=== PATIENT | male | born 1975 | race Caucasian/White ===

== ENCOUNTER → 2017-11-27 | Outpatient (CLI) | payer OTHER ==
[~2017-11-27] MED LIST: ADVIN25/60 INH; ALBUAER2 INH; CLC100 PO; LEVO75TA25 PO
--- NOTE | 2017-11-27 09:00 | DIAGNOSTIC IMAGING REPORT ---
ABDOMEN LIMITED (US) CLINICAL HISTORY: 42 years-old Male presenting with RIGHT UPPER QUAD PAIN. TECHNIQUE: Real-time grayscale and limited color Doppler ultrasound imaging of the abdomen limited to the right upper quadrant was performed. COMPARISON: 11/06/2013. FINDINGS: Pancreas: Largely obscured due to overlying bowel gas. Liver: Moderately hyperechogenic parenchyma with partial obscuration of the right hemidiaphragm, likely indicating moderate steatosis. Sonographic evaluation for hepatic mass limited. Biliary: No intrahepatic biliary ductal dilatation. Common bile duct measures up to 3-4 mm in diameter. Gallbladder: Surgically absent. Right kidney: Normal in appearance. No hydronephrosis. Ascites: None. IMPRESSION: 1. Hepatic steatosis. Correlate with liver function tests to exclude steatohepatitis as a cause for abdominal pain. 2. Postsurgical changes of cholecystectomy. Electronically signed by: Earl Sanchez M.D. 11/27/2017 8:58 AM Dictated Date/Time: 11/27/2017 8:56 AM
== END | disposition home or self-care (01) ==
LOC: C.ULTR 08:20
PROVIDERS: ATTEND Family Medicine
DX: R10.11 Right upper quadrant pain (principal); K76.0 Fatty (change of) liver, not elsewhere classified; Z90.49 Acquired absence of other specified parts of digestive tract

== ENCOUNTER 2024-05-21 17:27 | Inpatient (IN) ==
--- NOTE | 2024-05-21 18:04 | Emergency Department Note ---
Impression & Plan Cellulitis, ZOE (acute kidney injury), Acute hypokalemia ED Provider Note NAME: DEBBY EDWARDS AGE: 48 SEX: M : 1975 ARRIVES VIA: Walk-In INFORMANT: Patient ED PROVIDER(S): Prateek Nicholas DO CHIEF COMPLAINT: Redness on his left thigh HPI: Patient is a 48-year-old male morbidly obese who presents to the ER for redness to his right thigh in combination with swelling and pain. He was seen by his PCP and placed on antibiotics. He notes he started the antibiotics on Saturday. Redness has been worsening on ABX. Denies any headache or change in vision. No chest pain or shortness of breath. Does have a little bit of a cough. No dysuria, urgency, or frequency. No other exacerbating or remitting factors. Patient does believe that he has gained weight recently Additional history obtained by [facility] who notes that he has cellulitis on his right thigh and is taking antibiotics and has gotten worse per their call. ADDITIONAL HISTORY OBTAINED: Per HPI Chronic Medical/Social Conditions Affecting Care: Per HPI PAST MEDICAL HISTORY:See Below PAST SURGICAL HISTORY:See Below FAMILY HISTORY:See Below SOCIAL HISTORY:See Below HOME MEDICATIONS:See Below ALLERGIES:See Below VITALS:See Below PHYSICAL EXAMINATION: GENERAL: Sitting up in bed, alert, morbidly obese, disheveled EYE EXAM: normal conjunctiva. OROPHARYNX: no exudate, no erythema, lips, buccal mucosa, and tongue normal and mucous membranes are moist NECK: supple, no nuchal rigidity, no adenopathy, non-tender LUNGS: Clear to auscultation. Normal chest wall mechanics HEART: no murmurs, S1 normal and S2 normal ABDOMEN: abdomen soft, non-tender, normo-active bowel sounds, no masses, no rebound or guarding. BACK: Back is symmetrical on inspection and there is no deformity, no midline tenderness, no CVA tenderness. SKIN: no rashes and no bruising UPPER EXTREMITIES: upper extremities are grossly normal. LOWER EXTREMITIES: Edema in the bilateral lower extremities with significant area of erythema on the right thigh NEURO EXAM: Normal sensorium, cranial nerves II-XII grossly intact, normal speech, no gross weakness of arms, no gross weakness of legs. MEDICAL DECISION MAKING: Patient is a 48-year-old male morbidly obese who presents to the ER for above- stated complaint. IV was established blood was obtained. Labs show no significant leukocytosis. No anemia. BMP with mild hypokalemia 3.4. Creatinine 2.3 up from baseline of 1 Per discussion with the hospitalist was able to review records. LFTs bilirubin was unremarkable. Troponin was negative. Lipase was normal. Chest x-ray with enlarged heart. Venous duplex of the right lower extremity was ordered but did not result until after admission. Will defer to the hospitalist. Consults/Care Managements Discussions: Per MDM Triage Nursing notes reviewed. Limited review of prior medical records performed Vital Signs: reviewed and remarkable for HTN Differential diagnosis: Cellulitis, abscess, MRSA infection, DVT, necrotizing fasciitis, dermatitis, drug eruption, allergic reaction, as well as other pathologies. ER treatment provided: See below Diagnostics interpreted by me include EKG and cardiac monitoring as listed below: -Cardiac Monitoring: An order was placed for continuous cardiac monitoring. The monitor shows a rate of 92 with sinus rhythm. -ECG: none -Laboratory studies:Interpreted by me as stated above in MDM and shown below. Imaging studies: Xrays: As interpreted by me: Portable AP upright 1 view of the chest shows no focal infiltrate but enlarged heart CTs show: none Procedures:none Critical Care: None Past Med/Surg History Problem List (Updated 05/21/24 @ 22:35 by Prateek Nicholas DO) Acute hypokalemia (Acute) ZOE (acute kidney injury) (Acute) Cellulitis (Acute) Encounter for pre-operative examination Medical History Asthma HAS NOT USED INHALER FOR A LONG TIME History of kidney stones Hypertension Hypothyroidism Surgical History H/O gastric bypass 2004 History of cholecystectomy History of herniorrhaphy UMBILICAL [place] teeth removed Family History Other No family history of adverse response to anesthesia Social History Smoking Status: Former smoker Tobacco Type: Cigarettes and Cigars Second Hand Exposure: No; Do You Dip or Chew Tobacco: No; Hx Alcohol Use: Yes Alcohol type: beer, wine and hard liquor Preferred Language: Uzbek It Project Manager Required: No Beliefs That Will Affect Care: None Current Living Situation: Alone Feels Safe at Home: Yes Assistive Devices: Glasses Allergies Allergies Allergy/AdvReac Type Severity Reaction Status Date / Time No Known Allergies Allergy Verified 05/21/24 19:59 Home Meds Home Medications Medication Instructions Recorded Confirmed albuterol sulfate 90 mcg/actuation 1 inh inhalation QID PRN SHORT OF 03/03/21 05/21/24 breath activated powder inhaler BREATH cholecalciferol (vitamin D3) 50 50 mcg PO QAM 03/03/21 05/21/24 mcg (2,000 unit) capsule (Vitamin D3) fluticasone 250 mcg-salmeterol 50 2 inh inhalation BID 03/03/21 05/21/24 mcg/dose blistr powdr for inhalation (Advair Diskus) albuterol sulfate 2.5 mg/3 mL 2.5 mg inhalation QID PRN 05/21/24 05/21/24 (0.083 %) solution for nebulization Shortness Of Breath Or Wheezing dicloxacillin 500 mg capsule 500 mg PO QID 05/21/24 05/21/24 ibuprofen 200 mg tablet 200 mg PO Q6H PRN Pain 05/21/24 05/21/24 levothyroxine 100 mcg tablet 100 mcg PO DAILY 05/21/24 05/21/24 losartan 100 mg tablet 100 mg PO DAILY 05/21/24 05/21/24 multivitamin 1 tab PO DAILY 05/21/24 05/21/24 Results & Data (ED) Vital Signs Vital Signs - 24 hr 05/21/24 17:40 05/21/24 18:09 05/21/24 18:11 Temperature 36.6 C 37.0 C Temperature Source Temporal Artery Scan Oral Pulse Rate 95 H 77 Pulse Rate [Right Finger] 74 Pulse Rhythm [Right Finger] Respiratory Rate 20 22 21 Respiratory Effort / Characteristics Non-Labored Spontaneous Non-Labored Respiratory Depth Normal Respiratory Pattern Regular Blood Pressure 157/97 H Blood Pressure [Right Arm] 140/83 Blood Pressure Mean 117 Blood Pressure Mean [Right Arm] 102 Blood Pressure Position [Right Arm] Lying Pulse Oximetry 96 96 96 Oxygen Delivery Method Room Air Room Air Sepsis Recent Fever Within 48 Hours No Sepsis New/Unexplained Change in Mental Status N/A Sepsis Action Taken by Nursing No Action Required 05/21/24 18:16 05/21/24 20:12 Temperature Temperature Source Pulse Rate 77 Pulse Rate [Right Finger] 72 Pulse Rhythm [Right Finger] Regular Respiratory Rate 18 Respiratory Effort / Characteristics Non-Labored Spontaneous Respiratory Depth Normal Respiratory Pattern Blood Pressure Blood Pressure [Right Arm] 143/93 H Blood Pressure Mean Blood Pressure Mean [Right Arm] 109 Blood Pressure Position [Right Arm] Sitting Pulse Oximetry 99 Oxygen Delivery Method Room Air Sepsis Recent Fever Within 48 Hours Sepsis New/Unexplained Change in Mental Status Sepsis Action Taken by Nursing Laboratory Data 05/21/24 18:27 05/21/24 18:27 Lab Results 05/21/24 Range/Units 18:27 WBC 7.51 (4.8-10.8) K/ul RBC 4.32 L (4.70-6.10) M/uL Hgb 12.7 L (14.0-18.0) g/dl Hct 38.1 L (42.0-52.0) % MCV 88.2 (80.0-100.0) fL MCH 29.4 (25.0-34.0) pg MCHC 33.3 (32.0-36.0) g/dL RDW Std Deviation 51.3 H (36.4-46.3) fL RDW Coeff of Lily 15.8 H (11.5-14.5) % Plt Count 499 H (130-400) K/uL MPV 9.3 L (9.4-12.4) fL Immature Gran % (Auto) 0.4 % Neut % (Auto) 71.0 % Lymph % (Auto) 16.5 % [place] % (Auto) 10.0 % Eos % (Auto) 1.6 % Baso % (Auto) 0.5 % Neut # (Auto) 5.33 (1.40-6.50) K/uL Lymph # (Auto) 1.24 (1.20-3.40) K/uL [place] # (Auto) 0.75 H (0.11-0.59) K/uL Eos # (Auto) 0.12 (0.00-0.50) K/uL Baso # (Auto) 0.04 (0.00-0.20) K/uL Immature Gran # (Auto) 0.03 (0.01-0.20) K/uL Sodium 139 (136-145) mmol/L Potassium 3.4 L (3.5-5.1) mmol/L Chloride 105 (98-107) mmol/L Carbon Dioxide 25 (21-32) mmol/L Anion Gap 9 (3-11) BUN 37 H (6-23) mg/dl Creatinine 2.30 H (0.6-1.4) mg/dl Est Cr Clr Drug Dosing 70.1 ml/min Est GFR ( Amer) 37.0 ml/min Est GFR (Non-Af Amer) 31.9 ml/min BUN/Creatinine Ratio 16.1 (10-20) Glucose 102 H (70-99(Fasting)) mg/dl Calcium 9.5 (8.6-10.3) mg/dl Magnesium 1.7 (1.7-2.4) mg/dl Total Bilirubin 0.8 (0.2-1.0) mg/dl AST 19 (13-39) U/L ALT 12 (7-52) U/L Alkaline Phosphatase 63 (34-104) U/L Troponin I High Sens 5.0 (0-20) pg/ml B-Natriuretic Peptide 543 H (0-100) pg/ml Total Protein 7.1 (6.0-8.3) gm/dl Albumin 3.4 (3.4-5.0) gm/dl Globulin 3.7 (2.5-4.0) gm/dl Albumin/Globulin Ratio 0.9 (0.9-2) Lipase 39 (11-82) U/L Administered Medications Sodium Chloride (Nss) 1,000 mls @ 80 mls/hr IV .[id number] [facility] Stop: 05/22/24 09:14 Last Admin: 05/21/24 21:04 Dose: 80 mls/hr Documented By: EMB Discontinued Medications Ceftriaxone Sodium (Rocephin) 2,000 mg in 50 mls @ 100 mls/hr IV NOW STA Stop: 05/21/24 18:28 Last Infusion: 05/21/24 20:08 Dose: Infused Documented By: Admin: 05/21/24 18:37 Dose: 100 mls/hr Documented By: DANTE Linezolid (Zyvox) 600 mg in 300 mls @ 300 mls/hr IV NOW STA Stop: 07/25/24 21:25 Last Admin: 05/21/24 21:13 Dose: 300 mls/hr Documented By: EMB Potassium Chloride (Potassium Chloride Crtab 20 Meq Tabcr) 20 meq PO NOW STA Stop: 05/21/24 20:42 Last Admin: 05/21/24 21:04 Dose: 20 meq Documented By: EMB Imaging Data Radiologist's Impression: Chest X-Ray 05/21/24 17:52 XR chest 1V portable HISTORY: 48 years-old Male Chest pain, nonspecific COMPARISON: 09/08/2012 TECHNIQUE: AP view of the chest FINDINGS: Cardiac silhouette is enlarged. Mild right hemidiaphragmatic elevation with bibasilar atelectasis. No pneumothorax. Bones appear intact. IMPRESSION: Cardiomegaly without acute process. ACT 112: Negative or not required by law. The above report was generated using voice recognition software. It may contain grammatical, syntax or spelling errors. Electronically signed by: Luke Ghosh M.D. 05/21/2024 6:56 PM Venous Doppler Study 05/21/24 18:00 Exam(s): US VENOUS RIGHT LOWER EXTREMITY EXAM: US Duplex Right Lower Extremity Veins CLINICAL HISTORY: Reason for exam: swelling and pain rle. TECHNIQUE: Real-time duplex ultrasound scan of the right lower extremity veins integrating B-mode two-dimensional vascular structure, Doppler spectral analysis, color flow Doppler imaging and compression. COMPARISON: No relevant prior studies available. FINDINGS: Deep veins: Unremarkable. No DVT in the visualized common femoral, femoral, proximal deep femoral or popliteal veins. The veins demonstrate normal color flow, are normally compressible, with normal phasic flow and/or augmentation response. Superficial veins: There is superficial venous thrombosis seen involving varicose vein in the right thigh. There is thrombus in the great saphenous vein. Soft tissues: No acute findings. No popliteal cyst. IMPRESSION: 1. No evidence of deep venous thrombosis 2. Superficial fibrosis involving the varicose vein in the right distal thigh and right great saphenous vein Electronically signed by: Anthony Ingram MD 05/21/24 21:37 PM Discharge Plan Visit Data Chief Complaint: Referred by Doctor Stated Complaint: DIAGNOSTIC TESTING ED Provider: Prateek Nicholas Discharge Problem: Cellulitis, ZOE (acute kidney injury), Acute hypokalemia Patient Disposition: Admitted As Inpatient Discharge Instructions Interventions: ED Discharge Assessment Last Done: 05/21/24 21:51 Discharge Problem: Cellulitis Qualifiers: Site of cellulitis: unspecified site Qualified Code(s): L03.90 - Cellulitis, unspecified
[2024-05-21] MEDS: cefTRIAXone SODIUM 2,000 MG/50 ML BAG IV STA (18:37)
[2024-05-21 18:51] LABS: Basophils # (auto) 0.04 K/uL (0.00-0.20); Basophils % (auto) 0.5 %; Eosinophils # (auto) 0.12 K/uL (0.00-0.50); Eosinophils % (auto) 1.6 %; Hematocrit (blood only) 38.1 % (42.0-52.0); Hemoglobin 12.7 g/dl (14.0-18.0); Immature Granulocytes # (auto) 0.03 K/uL (0.01-0.20); Immature Granulocytes % (auto) 0.4 %; Lymphocytes # (auto) 1.24 K/uL (1.20-3.40); Lymphocytes % (auto) 16.5 %; Mean Corpuscular Hemoglobin 29.4 pg (25.0-34.0); Mean Corpuscular Hgb Conc 33.3 g/dL (32.0-36.0); Mean Corpuscular Volume 88.2 fL (80.0-100.0); Mean Platelet Volume 9.3 fL (9.4-12.4); Monocytes # (auto) 0.75 K/uL (0.11-0.59); Neutrophils # (auto) 5.33 K/uL (1.40-6.50); Platelet Count 499 K/uL (130-400); RDW Coefficient of Variation 15.8 % (11.5-14.5); RDW Standard Deviation 51.3 fL (36.4-46.3); Red Blood Count 4.32 M/uL (4.70-6.10); White Blood Count 7.51 K/ul (4.8-10.8)
--- NOTE | 2024-05-21 18:57 | XRay Report ---
XR chest 1V portable HISTORY: 48 years-old Male Chest pain, nonspecific COMPARISON: 09/08/2012 TECHNIQUE: AP view of the chest FINDINGS: Cardiac silhouette is enlarged. Mild right hemidiaphragmatic elevation with bibasilar atelectasis. No pneumothorax. Bones appear intact. IMPRESSION: Cardiomegaly without acute process. ACT 112: Negative or not required by law. The above report was generated using voice recognition software. It may contain grammatical, syntax o r spelling errors. Electronically signed by: Luke Ghosh M.D. 05/21/2024 6:56 PM
[2024-05-21 19:08] LABS: Albumin Globulin Ratio 0.9 (0.9-2); Albumin Level 3.4 gm/dl (3.4-5.0); BUN Creatinine Ratio 16.1 (10-20); Bilirubin,Total 0.8 mg/dl (0.2-1.0); Calcium 9.5 mg/dl (8.6-10.3); Creatinine Clr Calc Pharmacy 70.1 ml/min; Est GFR (Non-African American) 31.9 ml/min; Globulin 3.7 gm/dl (2.5-4.0); Potassium 3.4 mmol/L (3.5-5.1); Total Protein 7.1 gm/dl (6.0-8.3)
--- NOTE | 2024-05-21 20:41 | History & Physical Report ---
Date of Service May 21, 2024 Assessment & Plan (1) Cellulitis of both lower extremities: (2) ZOE (acute kidney injury): (3) Hypertension: (4) Acute hypokalemia: (5) Asthma: Plan Cellulitis of bilateral lower extremities, right greater than left- Hold dicloxacillin Continue ceftriaxone 2 g IV daily begun in the ED Have asked for the addition of linezolid 600 mg IV every 12 hours, with first dose to be given in the ED. Patient is not a candidate for daptomycin due to body habitus, and not a candidate for vancomycin due to acute kidney injury Florastor 250 mg p.o. daily Acute kidney injury/hypokalemia/hypomagnesemia- Creatinine 2.30, with baseline 0.85 Potassium 3.4. Magnesium level is added, and is 1.7. Give Klor-Con 20 mEq p.o., and magnesium sulfate 1 g IV Hold HCTZ, which he has been off of for a week Hold losartan Normal saline at 80 mL/h x 1 L Repeat laboratories in a.m. Asthma- Continue albuterol sulfate 4 times daily as needed Continue Advair discus 2 inhalations twice daily Hypothyroidism- Continue levothyroxine History of Present Illness Chief Complaint: The patient presents to the emergency department with complaint of acute right lower extremity greater than left lower extremity swelling, redness and discomfort progressively worsening over the past 2 days Primary Care Provider: Jensen Ghosh The patient is a 48-year-old male with a past medical history including asthma, vitamin D deficiency, hypothyroidism, hypertension and morbid obesity. He presents to the emergency department with symptoms as noted above. He denies any recent injuries, insect or other bites, or any other direct identifiable reason for the acute change in his lower extremities. He does report that 1 week ago his hydrochlorothiazide dosing was changed to losartan. He does report that he has felt intermittent dryness of his mouth over the past 3 to 4 weeks. He denies any change in diet or recent travels. Allergies Allergy/AdvReac Type Severity Reaction Status Date / Time No Known Allergies Allergy Verified 05/21/24 19:59 Home Medications Medication Instructions Recorded Confirmed Type albuterol sulfate 90 mcg/actuation 1 inh inhalation QID PRN SHORT OF 03/03/21 05/21/24 History breath activated powder inhaler BREATH cholecalciferol (vitamin D3) 50 50 mcg PO QAM 03/03/21 05/21/24 History mcg (2,000 unit) capsule (Vitamin D3) fluticasone 250 mcg-salmeterol 50 2 inh inhalation BID 03/03/21 05/21/24 History mcg/dose blistr powdr for inhalation (Advair Diskus) albuterol sulfate 2.5 mg/3 mL 2.5 mg inhalation QID PRN 05/21/24 05/21/24 History (0.083 %) solution for nebulization Shortness Of Breath Or Wheezing dicloxacillin 500 mg capsule 500 mg PO QID 05/21/24 05/21/24 History ibuprofen 200 mg tablet 200 mg PO Q6H PRN Pain 05/21/24 05/21/24 History levothyroxine 100 mcg tablet 100 mcg PO DAILY 05/21/24 05/21/24 History losartan 100 mg tablet 100 mg PO DAILY 05/21/24 05/21/24 History multivitamin 1 tab PO DAILY 05/21/24 05/21/24 History Past Med/Surg History Problem List (Updated 05/21/24 @ 23:16 by Jaspreet Stevenson MD) Asthma HAS NOT USED INHALER FOR A LONG TIME Hypertension Cellulitis of both lower extremities Acute hypokalemia (Acute) ZOE (acute kidney injury) (Acute) Cellulitis (Acute) Encounter for pre-operative examination Medical History Asthma HAS NOT USED INHALER FOR A LONG TIME History of kidney stones Hypertension Hypothyroidism Surgical History H/O gastric bypass 2004 History of cholecystectomy History of herniorrhaphy UMBILICAL [place] teeth removed Family History Other No family history of adverse response to anesthesia Social History Smoking Status: Former smoker Tobacco Type: Cigarettes and Cigars Second Hand Exposure: No; Do You Dip or Chew Tobacco: No; Hx Alcohol Use: No Hx Substance Use: No Preferred Language: Turkmen Communication Ability: Effective Rock Picker Required: No Beliefs That Will Affect Care: Faith Faith Beliefs: islam Current Living Situation: Alone Feels Safe at Home: Yes Assistive Devices: Glasses Review of Systems Review of Systems: The patient denies chest pain, palpitations, shortness of breath, dyspnea on exertion, cough, sore throat, fevers, chills, sweats, nausea, vomiting, diarrhea , constipation, abdominal pain, pelvic pain, blood in urine or stool, dysuria, urinary frequency or urgency, lightheadedness, dizziness, headache, memory loss, loss of consciousness, abnormal bruising or bleeding, imbalance, focal or generalized weakness, numbness or tingling in arms, generalized arthralgias or myalgias, back or neck pain, or night sweats. The review of systems is otherwise negative other than for that already noted above, and at least 10 systems have been reviewed. Physical Exam Physical Exam: The patient is awake, alert and oriented 3, well developed and well nourished, normocephalic and atraumatic, lying in bed and in no acute distress. HEENT--PERRL, EOMI, mucous membranes and oropharynx normal Neck--supple. No JVD. No bruits. Thyroid normal, trachea midline, no adenopa thy. Heart--normal S1 and S2. No murmurs, rubs or gallops. Lungs--clear bilaterally, no respiratory distress, no accessory muscle use. Abdomen--normal bowel sounds and soft. Nontender. Nondistended, no hernias or masses, no organomegaly. Extremities--erythema and warmth bilateral lower extremities, right greater than left, primarily medially along thighs, not involving perineum Dermatologic--normal except as noted above Neurologic--cranial nerves II through XII grossly intact. Rheumatologic--range of motion limited by body habitus Psychiatric--normal affect. Results & Data Results & Data Vital Signs (Past 12 Hours) Vital Signs Temp Pulse Pulse Resp BP BP Pulse Ox 05/21/24 20:12 72 18 143/93 H 99 05/21/24 18:16 77 05/21/24 18:11 77 21 96 05/21/24 18:09 37.0 C 74 22 140/83 96 05/21/24 17:40 36.6 C 95 H 20 157/97 H 96 O2 Del Method 05/21/24 20:12 Room Air 05/21/24 18:16 05/21/24 18:11 05/21/24 18:09 Room Air 05/21/24 17:40 Room Air Laboratory Results Laboratory Results WBC 7.51 K/ul (4.8-10.8) 05/21/24 18: RBC 4.32 M/uL (4.70-6.10) L 05/21/24 18:27 Hgb 12.7 g/dl (14.0-18.0) L 05/21/24 18: Hct 38.1 % (42.0-52.0) L 05/21/24 18: MCV 88.2 fL (80.0-100.0) 05/21/24 18: MCH 29.4 pg (25.0-34.0) 05/21/24 18: MCHC 33.3 g/dL (32.0-36.0) 05/21/24 18: RDW Std Deviation 51.3 fL (36.4-46.3) H 05/21/24 18: RDW Coeff of Lily 15.8 % (11.5-14.5) H 05/21/24 18: Plt Count 499 K/uL (130-400) H 05/21/24 18: MPV 9.3 fL (9.4-12.4) L 05/21/24 18: Immature Gran % (Auto) 0.4 % 05/21/24 18: Neut % (Auto) 71.0 % 05/21/24 18: Lymph % (Auto) 16.5 % 05/21/24 18: [place] % (Auto) 10.0 % 05/21/24 18: Eos % (Auto) 1.6 % 05/21/24 18: Baso % (Auto) 0.5 % 05/21/24 18: Neut # (Auto) 5.33 K/uL (1.40-6.50) 05/21/24 18: Lymph # (Auto) 1.24 K/uL (1.20-3.40) 05/21/24 18: [place] # (Auto) 0.75 K/uL (0.11-0.59) H 05/21/24 18: Eos # (Auto) 0.12 K/uL (0.00-0.50) 05/21/24 18:27 Baso # (Auto) 0.04 K/uL (0.00-0.20) 05/21/24 18: Immature Gran # (Auto) 0.03 K/uL (0.01-0.20) 05/21/24 18: Sodium 139 mmol/L (136-145) 05/21/24 18: Potassium 3.4 mmol/L (3.5-5.1) L 05/21/24 18: Chloride 105 mmol/L (98-107) 05/21/24 18: Carbon Dioxide 25 mmol/L (21-32) 05/21/24 18: Anion Gap 9 (3-11) 05/21/24 18: BUN 37 mg/dl (6-23) H 05/21/24 18: Creatinine 2.30 mg/dl (0.6-1.4) H 05/21/24 18: Est Cr Clr Drug Dosing 70.1 ml/min 05/21/24 18: Est GFR ( Amer) 37.0 ml/min 05/21/24 18: Est GFR (Non-Af Amer) 31.9 ml/min 05/21/24 18: BUN/Creatinine Ratio 16.1 (10-20) 05/21/24 18: Glucose 102 mg/dl (70-99(Fasting)) H 05/21/24 18: Calcium 9.5 mg/dl (8.6-10.3) 05/21/24 18: Magnesium 1.7 mg/dl (1.7-2.4) 05/21/24 18: Total Bilirubin 0.8 mg/dl (0.2-1.0) 05/21/24 18: AST 19 U/L (13-39) 05/21/24 18: ALT 12 U/L (7-52) 05/21/24 18: Alkaline Phosphatase 63 U/L (34-104) 05/21/24 18: Troponin I High Sens 5.0 pg/ml (0-20) 05/21/24 18: B-Natriuretic Peptide 543 pg/ml (0-100) H 05/21/24 18: Total Protein 7.1 gm/dl (6.0-8.3) 05/21/24 18: Albumin 3.4 gm/dl (3.4-5.0) 05/21/24 18:27 Globulin 3.7 gm/dl (2.5-4.0) 05/21/24 18:27 Albumin/Globulin Ratio 0.9 (0.9-2) 05/21/24 18: Lipase 39 U/L (11-82) 05/21/24 18:27 Impressions Chest X-Ray 05/21/24 17:52 XR chest 1V portable HISTORY: 48 years-old Male Chest pain, nonspecific COMPARISON: 09/08/2012 TECHNIQUE: AP view of the chest FINDINGS: Cardiac silhouette is enlarged. Mild right hemidiaphragmatic elevation with bibasilar atelectasis. No pneumothorax. Bones appear intact. IMPRESSION: Cardiomegaly without acute process. ACT 112: Negative or not required by law. The above report was generated using voice recognition software. It may contain grammatical, syntax or spelling errors. Electronically signed by: Luke Ghosh M.D. 05/21/2024 6:56 PM Venous Doppler Study 05/21/24 18:00 Exam(s): US VENOUS RIGHT LOWER EXTREMITY EXAM: US Duplex Right Lower Extremity Veins CLINICAL HISTORY: Reason for exam: swelling and pain rle. TECHNIQUE: Real-time duplex ultrasound scan of the right lower extremity veins integrating B-mode two-dimensional vascular structure, Doppler spectral analysis, color flow Doppler imaging and compression. COMPARISON: No relevant prior studies available. FINDINGS: Deep veins: Unremarkable. No DVT in the visualized common femoral, femoral, proximal deep femoral or popliteal veins. The veins demonstrate normal color flow, are normally compressible, with normal phasic flow and/or augmentation response. Superficial veins: There is superficial venous thrombosis seen involving varicose vein in the right thigh. There is thrombus in the great saphenous vein. Soft tissues: No acute findings. No popliteal cyst. IMPRESSION: 1. No evidence of deep venous thrombosis 2. Superficial fibrosis involving the varicose vein in the right distal thigh and right great saphenous vein Electronically signed by: Anthony Ingram MD 05/21/24 21:37 PM Code Status & VTE Plan Code Status full code VTE Prophylaxis Plan VTE Prophylaxis will be ordered: Yes PG Care Time/CCT Total # of Minutes Spent Total Time Spent with Patient: Total time spent is greater than 50% in coordination of care (as documented) at patient's floor/unit and/or counseling patient: Coding Level of Care Code 33067 INT INP/OBS CARE 3MIN Diagnoses Cellulitis of both lower extremities L03.115; L03.116 ZOE (acute kidney injury) N17.9 Hypertension I10 Acute hypokalemia E87.6 Asthma J45.909
[2024-05-21] MEDS: SODIUM CHLORIDE 0.9% 1,000 ML IV SCH (21:04)
[2024-05-21] MEDS: POTASSIUM CHLORIDE CRTAB 20 MEQ TABCR PO STA (21:04)
[2024-05-21] MEDS: LINEZOLID 600 MG/300 ML BAG IV STA (21:13)
[2024-05-21 21:15] LABS: Magnesium 1.7 mg/dl (1.7-2.4)
--- NOTE | 2024-05-21 21:38 | Ultrasound Report ---
Exam(s): US VENOUS RIGHT LOWER EXTREMITY EXAM: US Duplex Right Lower Extremity Veins CLINICAL HISTORY: Reason for exam: swelling and pain rle. TECHNIQUE: Real-time duplex ultrasound scan of the right lower extremity veins integrating B-mode two-dimensional vascular structure, Doppler spectral analysis, color flow Doppler imaging and compression. COMPARISON: No relevant prior studies available. FINDINGS: Deep veins: Unremarkable. No DVT in the visualized common femoral, femoral, proximal deep femoral or popliteal veins. The veins demonstrate normal color flow, are normally compressible, with normal phasic flow and/or augmentation response. Superficial veins: There is superficial venous thrombosis seen involving varicose vein in the right thigh. There is thrombus in the great saphenous vein. Soft tissues: No acute findings. No popliteal cyst. IMPRESSION: 1. No evidence of deep venous thrombosis 2. Superficial fibrosis involving the varicose vein in the right distal thigh and right great saphenous vein Electronically signed by: Anthony Ingram MD 05/21/24 21:37 PM
[2024-05-21] MEDS ORDERED: ALBUTEROL HFA 8 GM INHALER INH PRN (22:50)
[2024-05-21] MEDS: HEPARIN SOD 5,000 UNIT/0.5 ML VIAL SQ SCH (23:20)
--- OUTSIDE RECORDS SUMMARY | 2024-05-21 23:42 | External Medical Summary | Continuity of Care Document ---
Author Name Unknown Organization [facility] [id number] [place] [id number] Care Team Providers Care Maintenance Foreman Name Role Phone Jensen Ghosh Primary Care Physician [phone] Encounter [facility] [id number] Date(s): 05/13/24 - 05/13/24 [facility] [address] [address] [phone] Encounter Diagnosis Body mass index [BMI] 60.0-69.9, adult(Discharge Diagnosis) - 05/13/24 Asthma exacerbation(Discharge Diagnosis) - 05/13/24 HTN (hypertension)(Discharge Diagnosis) - 05/13/24 Hypothyroid(Discharge Diagnosis) - 05/13/24 Morbid obesity(Discharge Diagnosis) - 05/13/24 Tobacco user(Discharge Diagnosis) - 05/13/24 Discharge Disposition: Home or Self Care Attending Physician: MD Ghosh Dongsheng Allergies, Adverse Reactions, Alerts No Known Allergies Assessment and Plan Extracted from: Title:Office Visit Note Author:MD Ghosh Dongsh eng Date:05/13/24 1.Asthma exacerbation STATUS: Chronic stable: Chronic uncontrolled: Acute uncomplicated: Acute illness with systemic symptoms: Undiagnosed new problems with uncertain prognosis: Chronic illnesses with exacerbation, progression, or side effects of treatment: x 1 acute complicated injury: DATA: Review of prior external note(s) from each unique source: Review of the result(s) of each unique test: x tsh Ordering of each unique test: Assessment requiring independent historian(s): GOAL: Reduce symptoms PLAN: will increase albuterol to QID, restart advair, restart neb QID to replace inhaler. d/c HCTZ. Call if not better in 2 days.Declined Z Pakfor now. CXR ordered. fluid. rest. 2.HTN (hypertension) STATUS: Chronic, at goal DATA: Reviewed labs GOAL: Maintain stability PLAN: switch HCTZ 25 to losartan 100mg. Home BP. DASH and exercise, wt loss. 3.Hypothyroid STATUS: Chronic, stable DATA: Reviewed labs GOAL: Maintain stability PLAN: continue levothyroxine. vit D/dairy/walking. 4.Morbid obesity STATUS: Chronic s/p bariatric surgery, uncontrolled DATA: Reviewed labs GOAL: 5% loss PLAN: highest wt is at least 681 lbs. Stress management. Saw Nutrition.Declined GLP1. 5.Tobacco user advised to quit call prn.f/u 1 wk Immunizations Given and Recorded Vaccine Date Status Refusal Reason influenza virus vaccine, inactivated 09/08/19 Give n influenza virus vaccine, inactivated 07/04/18 Give n influenza virus vaccine, inactivated 11/26/17 Give n influenza virus vaccine, inactivated 10/26/14 Give n influenza virus vaccine, inactivated 08/21/13 Give n pneumococcal 23-valent vaccine 08/21/13 Given tetanus/diphtheria/pertuss, acel (Tdap) 08/21/13 G iven Medications Advair Diskus 250 mcg-50 mcg Start: 05/13/24 3:40:00 PM EDT, See Instructions, Disp# 1 each, Refills: 1, INHALE 2 PUFFS BY MOUTH TWICE A DAY rinse mouth and throat after use, Pharmacy: [id number] Start Date: 05/13/24 Status: Ordered albuterol 0.083% for nebulization Start: 12/16/19 12:38:00 PM EST, 3 mL, inhaled, q6h, Disp# 75 each, PRN: cough, Pharmacy: [id number] Start Date: 12/16/19 Status: Ordered levothyroxine 100 mcg (0.1 mg) oral tablet Start: 01/07/24 10:16:00 AM EDT, 1 tab, PO, Daily, Disp# 90 tab, Refills: 1, Pharmacy: [id number] Start Date: 01/07/24 Stop Date: 07/05/24 Status: Ordered losartan 100 mg oral tablet Start: 05/13/24 3:42:00 PM EDT, 1 tab, PO, Daily, Disp# 30 tab, Refills: 3, Pharmacy: [id number] Start Date: 05/13/24 Stop Date: 09/10/24 Status: Ordered multivitamin Start: 05/04/22 3:36:00 PM EDT, 1 tab, PO, Daily Start Date: 05/04/22 Status: Ordered Peak flow meter Start: 01/24/15 1:28:00 PM EDT, Peak flow meter, eRx Product Type: Supply, See Instructions, Disp# 1unit, home Dx: asthma Start Date: 01/24/15 Status: Ordered ProAir HFA 90 mcg/inh inhalation aerosol Start: 09/28/20 2:14:00 PM EST, 2 puff, inhaled, qid, Disp# 1 each, Refills: 4, PRN: cough, Pharmacy: [id number] Start Date: 09/28/20 Status: Ordered Shingrix intramuscular injection Start: 05/15/23 3:49:00 PM EDT, 0.5 mL, IM, ONCE, Disp# 1 each, Refills: 1, repeat dose in 2 to 6 months, Note to Pharmacy: do shot after birthday, Pharmacy: [id number] Start Date: 05/15/23 Status: Ordered Tetanus toxoids-Diphtheria, Adult (Td) 2 units-2 units/0.5 mL intramuscular suspension Start: 05/15/23 3:49:00 PM EDT, 0.5 mL, IM, ONCE, Disp# 0.5 mL, do shot after Oct, Note to Pharmacy:okay to do TDaP if TD is not available, Pharmacy: [id number] Start Date: 05/15/23 Status: Ordered Viagra 50 mg oral tablet Start: 09/28/20 2:16:00 PM EST, 1 tab, PO, Daily, Disp# 30 tab, 1 hour before sexual activity, PRN: as needed for erectile dysfunction, Pharmacy: [id number] Start Date: 09/28/20 Status: Ordered Vitamin D3 1000 intl units oral capsule Start: 10/05/13 4:00:00 PM EST, 1 cap, PO, Daily, Disp# 30 cap, other Start Date: 10/05/13 Status: Ordered Mental Status 05/13/24 Barriers to Learning one year None evide nt Mandatory Health Literacy Documentation Yes Health Literacy Communication Barriers N ever Primary Language Irish Problem List Condition Confirmation Course Effective Dates Status Health St atus Informant Asthma Confirmed Active Breathing-related sleep disorder Confirmed Active Left foot pain Confirmed Active S/P bariatric surgery Confirmed Active HTN (hypertension) Confirmed Active Hypothyroid Confirmed Active IFG (impaired fasting glucose) Confirmed Active Knee pain Confirmed Active Melanocytic nevus of skin Confirmed Active Morbid obesity Confirmed Active Tobacco user Confirmed Active Varicose veins of legs Confirmed Active Venous varices Confirmed Active Vitamin D deficiency Confirmed Active Weight disorder Confirmed Active Diagnosis Diagnosis Type Effective Dates Health Status Clinical Service Informant Asthma exacerbation Discharge Diagnosis 05/13/24 Non-Specified HTN (hypertension) Discharge Diagnosis 05/13/24 Non-Specified Body mass index [BMI] 60.0-69.9, adult Discharge Diagnosis 05/13/24 Non-Specified Hypothyroid Discharge Diagnosis 05/13/24 Non-Specified Morbid obesity Discharge Diagnosis 05/13/24 Non-Specified Tobacco user Discharge Diagnosis 05/13/24 Non-Specified Procedures Procedure Date Related Diagnosis Body Site Status Colonoscopy 1 03/07/21 Completed Diagnostic colonoscopy 2 03/07/21 Completed DEXA (dual energy X-ray absorptiometry) of lateral spine 3 12/22/20 Completed Ultrasound ABD Limited 4 11/27/17 Completed Cholecystectomy; 09/08/04 Complete d Gastric bypass 08/2004 Completed Full sleep study 02/21/99 Complete d Extraction of wisdom tooth Completed Manual repair of hernia C ompleted 1Impression: The entire examined colon is normal. No specimens collected. Recommendations: Repeat colonoscopy in 10 years for screening purposes. 2The entire examined colon is normal No specimens collected 3Impression: The BMD measured at Forearm Radius 33% is 0.918 g/cm2 with T-score of 1.4 is normal. Fracture risk is low. With Z-score of 1.4, this patient's BMD is slightly higher than the normal limits for their age andsex. 4Impression 1> Hepatic steatosis. Correlate with liver function test to exclude steatohpatitis as a cause for abdominl pain. 2> Postsurgical changes of cholecystectomy Vital Signs Most recent to oldest [Reference Range]: 1 Height 178.1 cm (05/13/24 3:28 PM) Patient Weight 203.9 kg (05/13/24 3:28 PM) Body Mass Index 64.28 kg/m2 (05/13/24 3:28 PM) Heart Rate 109 bpm (05/13/24 3:28 PM) Respiratory Rate 20 br/min (05/13/24 3:28 PM) Blood Pressure 124/78mmHg (05/13/24 3:28 PM) Cuff Pulse Pressure 46 mmHg (05/13/24 3:28 PM) Social History Social History Type Response Smoking Status Former Smoker, quit within 31 days - 1 yr Sex Male FCM Outpt Note * MD Augie, Jensen: PERFORM Event Display: FCM Outpt Note Authored Date: [id number] Chief Complaint Feeling bloated and dehydrated. Started 1 wk ago. Has abd hernia. History of Present Illness Cough: x1 wk. hacking cough "spasma". hard to sleep.worse atnight.little sputum.SOB. dry mouth.Bloated. umbilicalhernia:recurrent.urine is concentrated Very tired.sweats. HTN: on med. home BP has been good. no dizzy Thyroid: on med. WT: not doing much on diet and exercise. smoking: occasional no travel. Review of Systems No fever/chills. No headache. No other respiratory symptoms. No chest pain. No nausea/vomiting. No abdominal pain. No change with bowels. No urinary symptoms. Other systems reviewed and are neg. Physical Exam Vitals & Measurements HR:109(Monitored) RR:20 BP:124/78 SpO2:96% HT:178.1cm WT:203.900kg(Dosing) WT:203.9kg BMI:64.28 PHQ2 Data(Data Documented on:05/13/2024 15:24) Emotional health assessment NEGATIVE General: No acute distress. Nontoxic. Head:Normocephalic, Atraumatic. Eyes:Pupils are equal, round Normal conjunctiva. Respiratory:Lungs are clear to auscultation, Respirations non-labored, Breath sounds equal WERNER. Cardiovascular:Normal rate, Regular rhythm, No murmur, Rubs, gallops. Gastrointestinal:Soft, Non-tender, Non-distended, Normal bowel sounds. Musculoskeletal:no pitting edema Neurologic:Alert, Oriented, No focal deficits. Psychiatric:Cooperative, Appropriate mood & affect. Assessment/Plan 1.Asthma exacerbation STATUS: Chronic stable: Chronic uncontrolled: Acute uncomplicated: Acute illness with systemic symptoms: Undiagnosed new problems with uncertain prognosis: Chronic illnesses with exacerbation, progression, or side effects of treatment: x 1 acute complicated injury: DATA: Review of prior external note(s) from each unique source: Review of the result(s) of each unique test: x tsh Ordering of each unique test: Assessment requiring independent historian(s): GOAL: Reduce symptoms PLAN: will increase albuterol to QID, restart advair, restart neb QID to replace inhaler. d/c HCTZ. Call if not better in 2 days.Declined Z Pakfor now. CXR ordered. fluid. rest. 2.HTN (hypertension) STATUS: Chronic, at goal DATA: Reviewed labs GOAL: Maintain stability PLAN: switchHCTZ 25 to losartan 100mg. Home BP. DASH and exercise, wt loss. 3.Hypothyroid STATUS: Chronic, stable DATA: Reviewed labs GOAL: Maintain stability PLAN: continue levothyroxine. vit D/dairy/walking. 4.Morbid obesity STATUS: Chronic s/p bariatric surgery, uncontrolled DATA: Reviewed labs GOAL: 5% loss PLAN: highest wt is at least 681 lbs. Stress management. Saw Nutrition.Declined GLP1. 5.Tobacco user advised to quit call prn.f/u 1 wk Problem List/Past Medical History Ongoing Asthma Breathing-related sleep disorder H/O: hypothyroidism HTN (hypertension) Hypothyroid IFG (impaired fasting glucose) Incisional hernia Knee pain Left foot pain Melanocytic nevus of skin Morbid obesity Nephrolithiasis S/P bariatric surgery Tobacco user Varicose veins of legs Venous varices Vitamin D deficiency Weight disorder Procedure/Surgical History Colonoscopy| Service Date: 03/07/2021iagnostic colonoscopy| Service Date: 1DEXA (dual energy X-ray absorptiometry) of lateral spine| Service Date: 12/22/2020Ultrasound ABD Limited| Service Date: 11/27/2017Cholecystectomy;| Service Date: 09/08/2004Gastric bypass| Service Date: 08/2004Full sleep study| Service Date: 02/21/1999Manual repair of herniaExtraction ofwisdom tooth Medications albuterol(albuterol 0.083% for nebulization), 2.5 mg= 3 mL, inhaled, q6h, PRN albuterol(ProAir HFA 90 mcg/inh inhalation aerosol), 2 puff, inhaled, qid, PRN, 4 refills cholecalciferol(Vitamin D3 1000 intl units oral capsule), 1000 Int_Unit= 1 cap, PO, Daily fluticasone-salmeterol(Advair Diskus 250 mcg-50 mcg), See Instructions, 1 refills levothyroxine(levothyroxine 100 mcg (0.1 mg) oral tablet), 100 mcg= 1 tab, PO, Daily, 1 refills losartan(losartan 100 mg oral tablet), 100 mg= 1 tab, PO, Daily, 3 refills multivitamin, 1 tab, PO, Daily sildenafil(Viagra 50 mg oral tablet), 50 mg= 1 tab, PO, Daily, PRN tetanus toxoids-diphtheria, Td (Adult)(Tetanus toxoids-Diphtheria, Adult (Td) 2 units-2 units/0.5 mL intramuscular suspension), 0.5 mL, IM, ONCE unlisted medication(Peak flow meter), See Instructions zoster vaccine, inactivated(Shingrix intramuscular injection), 0.5 mL, IM, ONCE, 1 refills Allergies NKA Social History Smoking Status Former Smoker, quit within 31 days - 1 yr Alcohol - Low Risk Use:Current Type:Beer, Wine, Liquor Frequency:1-2 times per week Employment/School Status:Employed Description:[employer] Exercise - Occasional exercise Home/Environment Lives with:Alone Home equipment:Respiratory treatments Substance Abuse - Denies Substance Abuse Tobacco - No Risk Family History ANGINA, NOS: MGM. Cancer: MGM. Heart attack: MGF. Stroke: PGF. Health Status Family Member(s) Mother: History is unknown Father: History is negative Immunizations Vaccine Date Status influenza virus vaccine, inactivated 09/08/2019 Given influenza virus vaccine, inactivated 07/04/2018 Given influenza virus vaccine, inactivated 11/26/2017 Given influenza virus vaccine, inactivated 10/26/2014 Given pneumococcal 23-valent vaccine 08/21/2013 Given tetanus/diphtheria/pertuss, acel (Tdap) 08/21/2013 Given influenza virus vaccine, inactivated 08/21/2013 Given Recommendations Health Maintenance Pending(in the next year) Due Adult Influenza Vaccine due04/26/24and every 1year Adult COVID-19 Vaccination due05/13/24Unknown Frequency Adult Social Determinants of Health Screening due05/13/24Unknown Frequency Adult Tdap/Td Vaccine due05/13/24Unknown Frequency Pneumococcal Vaccine Adults and Adolescents with Chronic Illness due07/17/24One-time only Shingles Vaccine due05/13/24One-time only Satisfied(in the past 1 year) Satisfied Body Mass Index on05/13/24.Satisfied by MICAELA Cordero Alexandra Electronic Signature on File Electronically Reviewed/Signed by: Jensen Ghosh MD Author Signature Dt/Tm:05/13/2024 03:49 PM Department of Family Medicine DJ Patient Care team information Care Team Personnel Name: MD Ghosh Dongsheng Position: Physician - Family Med Member Role: Primary Care Provider Address: Address: [address] [place] [address] Name: CLARENCE Tesfaye Lynn Position: Physician Manager It Security Exempt - Vasc Surg Member Role: Lifetime Relationship Address: Address: [address] [place] [address] Care Team Related Persons Name: ALESSANDRO EDWARDS Address: home No Address Provided Name: ELIGIO EDWARDS Address: home No Address Provided
[2024-05-21] MEDS: MAGNESIUM SULFATE / D5W 1 GM/100 ML BAG IV ONE (23:55)
[2024-05-22] MEDS: LEVOTHYROXINE SODIUM 100 MCG TABLET PO SCH (06:14)
[2024-05-22 07:24] LABS: Basophils # (auto) 0.05 K/uL (0.00-0.20); Basophils % (auto) 0.7 %; Eosinophils # (auto) 0.24 K/uL (0.00-0.50); Eosinophils % (auto) 3.4 %; Hematocrit (blood only) 33.9 % (42.0-52.0); Hemoglobin 11.2 g/dl (14.0-18.0); Immature Granulocytes # (auto) 0.03 K/uL (0.01-0.20); Immature Granulocytes % (auto) 0.4 %; Lymphocytes # (auto) 1.13 K/uL (1.20-3.40); Lymphocytes % (auto) 15.8 %; Mean Corpuscular Hemoglobin 29.6 pg (25.0-34.0); Mean Corpuscular Volume 89.7 fL (80.0-100.0); Mean Platelet Volume 9.4 fL (9.4-12.4); Monocytes # (auto) 0.92 K/uL (0.11-0.59); Monocytes % (auto) 12.9 %; Neutrophils # (auto) 4.77 K/uL (1.40-6.50); Neutrophils % (auto) 66.8 %; Platelet Count 453 K/uL (130-400); RDW Coefficient of Variation 15.8 % (11.5-14.5); RDW Standard Deviation 51.8 fL (36.4-46.3); Red Blood Count 3.78 M/uL (4.70-6.10); White Blood Count 7.14 K/ul (4.8-10.8)
--- NOTE | 2024-05-22 07:29 | Hospitalist Progress Note ---
Date of Service May 22, 2024 Assessment & Plan (1) Cellulitis of both lower extremities: (2) ZOE (acute kidney injury): (3) Hypertension: (4) Acute hypokalemia: (5) Asthma: Plan Cellulitis of bilateral lower extremities, right greater than left- Patient failed outpatient cellulitis management with dicloxacillin Continue ceftriaxone 2 g IV daily. Continue linezolid 600 mg IV every 12 hours for MRSA coverage. Patient is not a candidate for daptomycin due to body habitus, and not a candidate for vancomycin due to acute kidney injury Florastor 250 mg p.o. daily Cellulitis borders marked with skin marker to assess for further changes Acute kidney injury/hypokalemia/hypomagnesemia- Creatinine 2.3 --> 1.88, with baseline 0.85 S/p 1L IV fluids, will hold off on additional fluids given adequate PO intake, also observed to have had 8kg weight gain in past week Suspect abrupt change in weight due to fluid retention, likely in part due to discontinuation of HCTZ last week Potassium 3.7 Magnesium 1.7 - wnl today Hold losartan Repeat laboratories AM Asthma- Continue albuterol sulfate 4 times daily as needed Continue Advair discus 2 inhalations twice daily Hypothyroidism- Continue levothyroxine Diet: heart healthy Full Code DVT prophylaxis: heparin Admission and Anticipated Discharge Date Admission Date: May 21, 2024 Supervising Physician Co-Signing Physician Notes Attending Physician Supervision Note: I independently interviewed and examined the patient and verified the rojas history and physical, reviewed labs and image studies and agree with findings and care plan noted above. No new concerns. comfortable in bed Skin - extensive erythema and induration extending across the right medial thigh and partly in right thigh as well. Cellulitis - continue ceftriaxone and linezolid. ZOE - improved with IV hydration. follow renal function. holding hctz. -possible concern of fluid overload d/t weight gain. will follow closely. Subjective Shahram is feeling improved slightly this morning as his right leg is somewhat less uncomfortable. Still feels like his range of motion is limited by the infection and swelling is bothersome. He is afebrile with no chills. Feels that his dehydration has improved significantly, now with light colored urine. No nausea, vomiting, or diarrhea. No chest pain or shortness of breath. Review of Systems Review of Systems: See HPI Physical Exam Physical Exam: The patient is awake, alert and oriented 3, well developed and well nourished, normocephalic and atraumatic, lying in bed and in no acute distress. HEENT--PERRL, EOMI, mucous membranes and oropharynx normal Neck--supple. No JVD. No bruits. Thyroid normal, trachea midline, no adenopathy. Heart--normal S1 and S2. No murmurs, rubs or gallops. Lungs--clear bilaterally, no respiratory distress, no accessory muscle use. Abdomen--normal bowel sounds and soft. Nontender. Nondistended, no hernias or masses, no organomegaly. Extremities--erythema and warmth bilateral lower extremities, right greater than left, primarily medially along thighs, not involving perineum. Subcutaneous nodules present Dermatologic--normal except as noted above Neurologic--cranial nerves II through XII grossly intact. Psychiatric--normal affect. Results & Data Results & Data Vital Signs (Past 12 Hours) Vital Signs Temp Pulse Resp BP Pulse Ox O2 Del Method 05/22/24 06:49 36.6 C 73 16 132/82 94 Room Air 05/21/24 22:39 Room Air 05/21/24 22:27 36.7 C 69 18 126/81 98 Room Air 05/21/24 20:12 72 18 143/93 H 99 Room Air Laboratory Results Cardiac Enzymes 05/21/24 Range/Units 18:27 AST 19 (13-39) U/L Troponin I High Sens 5.0 (0-20) pg/ml B-Natriuretic Peptide 543 H (0-100) pg/ml Coagulation 05/21/24 Range/Units 18:27 B-Natriuretic Peptide 543 H (0-100) pg/ml CBC 05/21/24 05/22/24 Range/Units 18:27 06:22 WBC 7.51 7.14 (4.8-10.8) K/ul RBC 4.32 L 3.78 L (4.70-6.10) M/uL Hgb 12.7 L 11.2 L (14.0-18.0) g/dl Hct 38.1 L 33.9 L (42.0-52.0) % Plt Count 499 H 453 H (130-400) K/uL Neut # (Auto) 5.33 4.77 (1.40-6.50) K/uL Lymph # (Auto) 1.24 1.13 L (1.20-3.40) K/uL Tompkins # (Auto) 0.75 H 0.92 H (0.11-0.59) K/uL Eos # (Auto) 0.12 0.24 (0.00-0.50) K/uL Baso # (Auto) 0.04 0.05 (0.00-0.20) K/uL Comprehensive Metabolic Panel 05/21/24 Range/Units 18:27 Sodium 139 (136-145) mmol/L Potassium 3.4 L (3.5-5.1) mmol/L Chloride 105 (98-107) mmol/L Carbon Dioxide 25 (21-32) mmol/L BUN 37 H (6-23) mg/dl Creatinine 2.30 H (0.6-1.4) mg/dl Glucose 102 H (70-99(Fasting)) mg/dl Calcium 9.5 (8.6-10.3) mg/dl AST 19 (13-39) U/L ALT 12 (7-52) U/L Alkaline Phosphatase 63 (34-104) U/L Total Protein 7.1 (6.0-8.3) gm/dl Albumin 3.4 (3.4-5.0) gm/dl Intake and Output 05/21/24 05/22/24 05/22/24 22:59 06:59 14:59 Intake Total 50 / 450 400 / 450 Balance 50 / 450 400 / 450 Intake: IV 50 / 450 400 / 450 Linezolid 600 mg In 300 ml @ 300 / 300 300 mls/hr IV NOW STA Rx#: [id number] Magnesium Sulfate / D5w 1 gm In 100 / 100 100 ml @ 50 mls/hr IV ONE ONE Rx#:[id number] cefTRIAXone SODIUM 2,000 mg In 50 / 50 50 ml @ 100 mls/hr IV NOW STA Rx#:[id number] Other: # Unmeasured Voids 1 Weight 208.743 kg Weight Measurement Method Standing Scale Resident Activity Tracking Resident Involvement: Resident Care Provided Care Provided: Adult [facility]
[2024-05-22 07:49] LABS: Albumin Level 2.9 gm/dl (3.4-5.0); BUN Creatinine Ratio 16.5 (10-20); Calcium 8.7 mg/dl (8.6-10.3); Creatinine Clr Calc Pharmacy 84.6 ml/min; Est GFR (African American) 47.2 ml/min; Est GFR (Non-African American) 40.7 ml/min; Magnesium 1.7 mg/dl (1.7-2.4); Potassium 3.7 mmol/L (3.5-5.1)
[2024-05-22] MEDS: cefTRIAXone SODIUM 2,000 MG/50 ML BAG IV SCH (08:20)
[2024-05-22] MEDS: CHOLECALCIFEROL 25 MCG (1000 UNITS) TAB PO SCH (08:21)
[2024-05-22] MEDS: SACCHAROMYCES BOULARDII 250 MG CAP PO SCH (08:21)
[2024-05-22] MEDS: MULTIVITAMIN TAB PO SCH (08:21)
[2024-05-22] MEDS: FLUTICASONE/VILANTEROL 100/25MCG 14 PUFFS/INHALER INH SCH (08:22)
[2024-05-22] MEDS: LINEZOLID 600 MG/300 ML BAG IV SCH (09:11)
--- NOTE | 2024-05-22 20:30 | Electrocardiogram Report ---
Test Reason : Blood Pressure : / mmHG Vent. Rate : 083 BPM Atrial Rate : 083 BPM P-R Int : 130 ms QRS Dur : 090 ms QT Int : 398 ms P-R-T Axes : 008 -13 009 degrees QTc Int : 467 ms Normal sinus rhythm Cannot rule out Anterior infarct , age undetermined Abnormal ECG No previous ECGs available Confirmed by Elliott Doss ([id number]) on 05/22/2024 8:30:23 PM Referred By: Buck Giron Confirmed By:Elliott Doss
[2024-05-23 07:00] LABS: Basophils # (auto) 0.04 K/uL (0.00-0.20); Basophils % (auto) 0.6 %; Eosinophils % (auto) 2.9 %; Hematocrit (blood only) 35.1 % (42.0-52.0); Hemoglobin 11.8 g/dl (14.0-18.0); Immature Granulocytes # (auto) 0.03 K/uL (0.01-0.20); Immature Granulocytes % (auto) 0.4 %; Lymphocytes # (auto) 1.25 K/uL (1.20-3.40); Lymphocytes % (auto) 18.4 %; Mean Corpuscular Hemoglobin 29.6 pg (25.0-34.0); Mean Corpuscular Hgb Conc 33.6 g/dL (32.0-36.0); Mean Corpuscular Volume 88.2 fL (80.0-100.0); Mean Platelet Volume 9.6 fL (9.4-12.4); Monocytes # (auto) 0.85 K/uL (0.11-0.59); Monocytes % (auto) 12.5 %; Neutrophils # (auto) 4.42 K/uL (1.40-6.50); Neutrophils % (auto) 65.2 %; Platelet Count 469 K/uL (130-400); RDW Coefficient of Variation 15.9 % (11.5-14.5); RDW Standard Deviation 51.5 fL (36.4-46.3); Red Blood Count 3.98 M/uL (4.70-6.10); White Blood Count 6.79 K/ul (4.8-10.8)
[2024-05-23 07:40] LABS: BUN Creatinine Ratio 13.8 (10-20); Calcium 8.8 mg/dl (8.6-10.3); Creatinine Clr Calc Pharmacy 99.5 ml/min; Est GFR (African American) 57.4 ml/min; Est GFR (Non-African American) 49.5 ml/min; Magnesium 1.5 mg/dl (1.7-2.4); Phosphorus 3.6 mg/dl (2.5-4.9); Potassium 3.7 mmol/L (3.5-5.1)
--- NOTE | 2024-05-23 10:25 | Hospitalist Progress Note ---
Date of Service May 23, 2024 Assessment & Plan (1) Cellulitis of both lower extremities: (2) ZOE (acute kidney injury): (3) Hypertension: (4) Acute hypokalemia: (5) Asthma: Plan Cellulitis of bilateral lower extremities, right greater than left- Patient failed outpatient cellulitis management with dicloxacillin Continue ceftriaxone 2 g IV daily + linezolid 600 mg IV every 12 hours Patient is not a candidate for daptomycin due to body habitus, and not a cand idate for vancomycin due to acute kidney injury Florastor 250 mg p.o. daily Cellulitis borders marked with skin marker 05/22, continue to monitor for further changes Acute kidney injury/hypokalemia/hypomagnesemia- Creatinine 1.88 --> 1.6, with baseline 0.85 Will continue to hold off on additional fluids given adequate PO intake, also observed to have had 8kg weight gain in past week Suspect abrupt change in weight due to fluid retention, likely in part due to discontinuation of HCTZ last week Potassium 3.7 Magnesium 1.5 - electrolytes repleted Hold losartan Repeat laboratories AM H/o Chronic venous insufficiency: Increased leg swelling and abrupt weight gain in the week leading up to admission, likely fluid retention exacerbated by discontinuation of HCTZ Will try knee-high bilateral compression stockings and reassess Asthma- Continue albuterol sulfate 4 times daily as needed Continue Advair discus 2 inhalations twice daily Hypothyroidism- Continue levothyroxine Diet: heart healthy Full Code DVT prophylaxis: heparin Admission and Anticipated Discharge Date Admission Date: May 21, 2024 Supervising Physician Co-Signing Physician Notes Attending Physician Supervision Note: I independently interviewed and examined the patient and verified the rojas history and physical, reviewed labs and image studies and agree with findings and care plan noted above. No new concerns. comfortable in bed Skin - erythema much improved from the pen marked margin Cellulitis - continue ceftriaxone and linezolid. ZOE - improved with IV hydration. follow renal function. holding hctz. -possible concern of fluid overload d/t weight gain since outpatient visit weight measurement. will follow closely. Anticipate d/c home in am Arnaldo Shahram reports that skin lesion progression seems at least to have stagnated, unsure whether there is improvement yet. Pain is about the same. More than the pain, he notes feeling of tightness due to swelling (thighs>calves) as being the most bothersome. Denies weeping or discharge. Prior to last week, pt consistently used compression stockings for venous insufficiency - now unable to put them on and does not have assistance. He is afebrile with no chills. No nausea, vomiting, or diarrhea. No chest pain or shortness of breath. Review of Systems Review of Systems: as per HPI Physical Exam Physical Exam: General: Alert and oriented. No acute distress Cardiac: Regular rate and rhythm, no murmurs appreciated Respiratory: Lungs clear to auscultation bilaterally, No increased work of breathing. No crackles, wheezes, rhonchi appreciated. Abdominal: Soft, non-tender, non-distended. Bowel sounds present. Extremities: + bilateral lower extremity edema, calves non-tender bilaterally Skin: Bilateral medial thighs R>>L with confluent areas of erythema, warm to touch, indurated, and tender to palpation in certain areas. Left thigh appears improved compared to yesterday, right thigh with mild improvement, no progression beyond marked boundaries. Results & Data Results & Data Vital Signs (Past 12 Hours) Vital Signs Temp Pulse Resp BP Pulse Ox O2 Del Method 05/23/24 06:56 37.0 C 68 16 129/85 98 Room Air Resident Activity Tracking Resident Involvement: Resident Care Provided Care Provided: Adult Hospital Medicine
[2024-05-23] MEDS: MAGNESIUM SULFATE / D5W 1 GM/100 ML BAG IV SCH (12:19)
[2024-05-24] MEDS: ACETAMINOPHEN 325 MG TAB PO PRN (01:36)
[2024-05-24 06:45] LABS: Basophils # (auto) 0.03 K/uL (0.00-0.20); Basophils % (auto) 0.4 %; Eosinophils # (auto) 0.23 K/uL (0.00-0.50); Eosinophils % (auto) 3.1 %; Hematocrit (blood only) 33.7 % (42.0-52.0); Immature Granulocytes # (auto) 0.02 K/uL (0.01-0.20); Immature Granulocytes % (auto) 0.3 %; Lymphocytes # (auto) 1.49 K/uL (1.20-3.40); Lymphocytes % (auto) 19.9 %; Mean Corpuscular Hemoglobin 28.9 pg (25.0-34.0); Mean Corpuscular Hgb Conc 32.6 g/dL (32.0-36.0); Mean Corpuscular Volume 88.7 fL (80.0-100.0); Mean Platelet Volume 9.4 fL (9.4-12.4); Monocytes # (auto) 0.83 K/uL (0.11-0.59); Monocytes % (auto) 11.1 %; Neutrophils # (auto) 4.87 K/uL (1.40-6.50); Neutrophils % (auto) 65.2 %; Platelet Count 430 K/uL (130-400); RDW Coefficient of Variation 15.9 % (11.5-14.5); RDW Standard Deviation 51.6 fL (36.4-46.3); White Blood Count 7.47 K/ul (4.8-10.8)
[2024-05-24 07:03] LABS: Albumin Level 2.9 gm/dl (3.4-5.0); BUN Creatinine Ratio 11.9 (10-20); Calcium 8.3 mg/dl (8.6-10.3); Creatinine Clr Calc Pharmacy 118.7 ml/min; Est GFR (African American) 71.1 ml/min; Est GFR (Non-African American) 61.3 ml/min; Magnesium 1.5 mg/dl (1.7-2.4); Phosphorus 3.7 mg/dl (2.5-4.9); Potassium 3.6 mmol/L (3.5-5.1)
[2024-05-24] MEDS: MAGNESIUM SULFATE / D5W 1 GM/100 ML BAG IV SCH (09:38)
--- NOTE | 2024-05-24 10:26 | Hospitalist Progress Note ---
Date of Service May 24, 2024 Assessment & Plan (1) Cellulitis of both lower extremities: (2) ZOE (acute kidney injury): (3) Hypertension: (4) Acute hypokalemia: (5) Asthma: Plan Cellulitis of bilateral lower extremities, right greater than left- Patient failed outpatient cellulitis management with dicloxacillin Given minimal improvement, will continue ceftriaxone 2 g IV daily + linezolid 600 mg IV every 12 hours (day 3 of IV abx) Tentative plan to transition to PO Doxycycline when ready for discharge, will reevaluate tomorrow. Patient is not a candidate for daptomycin due to body habitus, and not a candidate for vancomycin due to acute kidney injury Florastor 250 mg p.o. daily Cellulitis borders marked with skin marker 05/22, continue to monitor for further changes Acute kidney injury/hypokalemia/hypomagnesemia- Creatinine 1.6-->1.34 with baseline 0.85 Will continue to hold off on additional fluids given adequate PO intake, also observed to have had 8kg weight gain in past week Suspect abrupt change in weight due to fluid retention, likely in part due to discontinuation of HCTZ last week Potassium 3.6 Magnesium 1.5 - electrolytes repleted Hold losartan Repeat laboratories AM H/o Chronic venous insufficiency: Increased leg swelling and abrupt weight gain in the week leading up to admission, likely fluid retention exacerbated by discontinuation of HCTZ Knee-high bilateral FLORENCE stockings not helpful, removed. Would recommend resumption of home compression stockings uppon discharge. Asthma- Continue albuterol sulfate 4 times daily as needed Continue Advair discus 2 inhalations twice daily Hypothyroidism- Continue levothyroxine Diet: heart healthy Full Code DVT prophylaxis: heparin Admission and Anticipated Discharge Date Admission Date: May 21, 2024 Supervising Physician Co-Signing Physician Notes Attending Physician Supervision Note: I independently interviewed and examined the patient and verified the rojas history and physical, reviewed labs and image studies and agree with findings and care plan noted above. Skin - erythema unchanged from yesterday but no worsening. induration slightly improved. Cellulitis - continue ceftriaxone and linezolid. ZOE - improved with IV hydration. follow renal function. holding hctz. -On admission - possible concern of fluid overload d/t weight gain since outpatient visit weight measurement. Monitor. Heparin Subjective Shahram reports that skin lesion looks about the same on the right, improved on the left. Pain is about the same. More than the pain, he notes feeling of tightness due to swelling (thighs>calves) as being the most bothersome. Denies weeping or discharge. FLORENCE stockings offered yesterday were not helpful, would like to remove today. He is afebrile with no chills. No nausea, vomiting, or diarrhea. No chest pain or shortness of breath. Review of Systems Review of Systems: as per HPI Physical Exam Physical Exam: General: Alert and oriented. No acute distress Cardiac: Regular rate and rhythm, no murmurs appreciated Respiratory: Lungs clear to auscultation bilaterally, No increased work of breathing. No crackles, wheezes, rhonchi appreciated. Abdominal: Soft, non-tender, non-distended. Bowel sounds present. Extremities: + bilateral lower extremity edema, calves non-tender bilaterally Skin: Bilateral medial thighs R>>L with confluent areas of erythema, still warm to touch, indurated in some areas, and tender to palpation in certain areas - largely unchanged from yesterday. Left thigh appears improved compared to yesterday, no progression beyond marked boundaries. Results & Data Results & Data Vital Signs (Past 12 Hours) Vital Signs Temp Pulse Resp BP Pulse Ox O2 Del Method 05/24/24 07:10 37.0 C 64 14 137/90 98 Room Air Resident Activity Tracking Resident Involvement: Resident Care Provided Care Provided: Adult Hospital Medicine
[2024-05-25 06:27] LABS: Hematocrit (blood only) 36.7 % (42.0-52.0); Mean Corpuscular Hemoglobin 29.3 pg (25.0-34.0); Mean Corpuscular Hgb Conc 32.7 g/dL (32.0-36.0); Mean Corpuscular Volume 89.7 fL (80.0-100.0); Mean Platelet Volume 9.3 fL (9.4-12.4); Platelet Count 441 K/uL (130-400); RDW Coefficient of Variation 15.6 % (11.5-14.5); RDW Standard Deviation 51.7 fL (36.4-46.3); Red Blood Count 4.09 M/uL (4.70-6.10); White Blood Count 7.87 K/ul (4.8-10.8)
[2024-05-25 06:43] LABS: BUN Creatinine Ratio 10.1 (10-20); Calcium 8.5 mg/dl (8.6-10.3); Est GFR (African American) 91.2 ml/min; Est GFR (Non-African American) 78.7 ml/min; Magnesium 1.5 mg/dl (1.7-2.4); Potassium 3.9 mmol/L (3.5-5.1)
[2024-05-25] MEDS: MAGNESIUM SULFATE / D5W 1 GM/100 ML BAG IV SCH (10:25)
--- NOTE | 2024-05-25 16:08 | Discharge Summary ---
Date of Service May 25, 2024 Admission HPI Per Admitting Provider The patient is a 48-year-old male with a past medical history including asthma, vitamin D deficiency, hypothyroidism, hypertension and morbid obesity. He presents to the emergency department with symptoms as noted above. He denies any recent injuries, insect or other bites, or any other direct identifiable reason for the acute change in his lower extremities. He does report that 1 week ago his hydrochlorothiazide dosing was changed to losartan. He does report that he has felt intermittent dryness of his mouth over the past 3 to 4 weeks. He denies any change in diet or recent travels. Admission Exam Per Admitting Provider The patient is awake, alert and oriented 3, well developed and well nourished, normocephalic and atraumatic, lying in bed and in no acute distress. HEENT--PERRL, EOMI, mucous membranes and oropharynx normal Neck--supple. No JVD. No bruits. Thyroid normal, trachea midline, no adenopathy. Heart--normal S1 and S2. No murmurs, rubs or gallops. Lungs--clear bilaterally, no respiratory distress, no accessory muscle use. Abdomen--normal bowel sounds and soft. Nontender. Nondistended, no hernias or masses, no organomegaly. Extremities--erythema and warmth bilateral lower extremities, right greater than left, primarily medially along thighs, not involving perineum Dermatologic--normal except as noted above Neurologic--cranial nerves II through XII grossly intact. Rheumatologic--range of motion limited by body habitus Psychiatric--normal affect. Principal Diagnosis LE cellulitis vs venous stasis Discharge Exam General: Alert and oriented. No acute distress Cardiac: Regular rate and rhythm, no murmurs appreciated Respiratory: Lungs clear to auscultation bilaterally, No increased work of breathing. No crackles, wheezes, rhonchi appreciated. Abdominal: Soft, non-tender, non-distended. Bowel sounds present. Extremities: + bilateral lower extremity edema, calves non-tender bilaterally Skin: Bilateral medial thighs R>>L with confluent areas of erythema, still warm to touch, indurated in some areas, and tender to palpation in certain areas - largely unchanged from yesterday. Left thigh appears improved compared to yesterday, no progression beyond marked boundaries. Discharge Data Allergies Allergy/AdvReac Type Severity Reaction Status Date / Time No Known Allergies Allergy Verified 05/21/24 19:59 Consultations 05/21/24 19:50 ED Decision to Admit Stat Ordered Studies Chest X-Ray 05/21/24 17:52 XR chest 1V portable HISTORY: 48 years-old Male Chest pain, nonspecific COMPARISON: 09/08/2012 TECHNIQUE: AP view of the chest FINDINGS: Cardiac silhouette is enlarged. Mild right hemidiaphragmatic elevation with bibasilar atelectasis. No pneumothorax. Bones appear intact. IMPRESSION: Cardiomegaly without acute process. ACT 112: Negative or not required by law. The above report was generated using voice recognition software. It may contain grammatical, syntax or spelling errors. Electronically signed by: Luke Ghosh M.D. 05/21/2024 6:56 PM Venous Doppler Study 05/21/24 18:00 Exam(s): US VENOUS RIGHT LOWER EXTREMITY EXAM: US Duplex Right Lower Extremity Veins CLINICAL HISTORY: Reason for exam: swelling and pain rle. TECHNIQUE: Real-time duplex ultrasound scan of the right lower extremity veins integrating B-mode two-dimensional vascular structure, Doppler spectral analysis, color flow Doppler imaging and compression. COMPARISON: No relevant prior studies available. FINDINGS: Deep veins: Unremarkable. No DVT in the visualized common femoral, femoral, proximal deep femoral or popliteal veins. The veins demonstrate normal color flow, are normally compressible, with normal phasic flow and/or augmentation response. Superficial veins: There is superficial venous thrombosis seen involving varicose vein in the right thigh. There is thrombus in the great saphenous vein. Soft tissues: No acute findings. No popliteal cyst. IMPRESSION: 1. No evidence of deep venous thrombosis 2. Superficial fibrosis involving the varicose vein in the right distal thigh and right great saphenous vein Electronically signed by: Anthony Ingram MD 05/21/24 21:37 PM Hospital Course (1) Cellulitis of both lower extremities: (2) ZOE (acute kidney injury): (3) Hypertension: (4) Acute hypokalemia: (5) Asthma: Plan Cellulitis VS Venous stasis changes of bilateral lower extremities, right greater than left- Patient failed outpatient cellulitis management with dicloxacillin x2 days Admitted for IV abx, minimal improvement on ceftriaxone 2 g IV daily + linezolid 600 mg IV every 12 hours x3 days Minimal improvement and absence of WBC elevation, absence of fever perhaps favors venous stasis as etiology for current presentation. Because infectious process remains a plausible etiology, will discharge on PO Linezolid x5 days Recommend increased movement and compression therapy as feasible to address venous insufficiency - consider referral to wound care for assistance with compression therapy if pt having difficulty managing independently. Additionally, because increased LE swelling and fluid retention coincided with discontinuation of hydrochlorothiazide, will replace Losartan with Hydrochlorothiazide - recheck BMP in 1 week. Acute kidney injury/hypokalemia/hypomagnesemia-RESOLVED Creatinine 2.3 on admission, decreased to 1.09 on morning of discharge Lab recheck in 1 week Total Time Total Time Spent Total Time Spent (In Minutes): <30 Discharge Plan Discharge Items Patient Disposition: Home - Self-Care Reason For Visit: B/L LE CELLULITIS, R > L, ZOE, HYPOKALEMIA Discharge Diagnosis: LE cellulitis Activity: Resume your previous activity Non-emergency contact: Primary Care Provider Call non-emergency contact if: you have any medication questions, your symptoms worsen, your pain is not controlled and you have a fever Follow-up/Referrals: Jensen Ghosh [Primary Care Provider] - 06/02/24 2:40 pm (1:25 arrival, with Dr. Gold) Diet: Regular Addtl Attending Provider Instructions: You were admitted to the hospital for symptoms that could be be due to lower extremity cellulitis, venous stasis, or more likely some combination of the two. You were treated with IV antibiotics. Following discharge, we recommend completing a course of oral antibiotics, see below for instructions. Regarding venous stasis, swelling, and fluid retention, we recommend following up with your PCP to address this further. In the interim, continue to wear compression stockings as feasible. If having difficulty, please discuss with your PCP as they may place a referral to wound care for compression wrap assistance. A discharge summary will be sent to your primary care physician to ensure continuity of care. Please bring this discharge summary with you to your next office appointment so that your provider can review it at that time. Medications: Your medication list has been reviewed and reconciled upon discharge to ensure accuracy and continuity of care. An updated list of all your medications is included with your hospital discharge paperwork. Please review this list closely and make note of any changes to your medications. New Medications: - Linezolid: Please take 1 tab twice daily for 5 more days. - Hydrochlorothiazide: Please take one 25mg tablet once daily. An order for monitoring labs will be placed in your [facility] Chart - please have your blood drawn at your usual lab in 1 week; there is no need to be fasting. Discontinued Medications: - Please DISCONTINUE the Losartan. Follow up appointments: - Make a follow up appointment with your PCP within the next week. It is very important that you follow up with them shortly after discharge from the hospital. - Keep all of your follow up appointments as already scheduled. If you cannot make an appointment, notify your provider. CONTACT YOUR PRIMARY CARE PROVIDER if you experience any of the following: - Difficulty following your treatment plan - Difficulty taking any of your medications CALL 911 OR GO TO THE EMERGENCY DEPARTMENT if you experience any of the following: - Sudden, severe abdominal pain or nausea/vomiting - Severe chest pain or chest pain that radiates to your jaw or arm - Sudden, severe shortness of breath or difficulty breathing Pending Studies at Discharge: No Stand-Alone Forms: [facility], Smoking Cessation Medications and DC Order Prescriptions: New linezolid 600 mg tablet 600 mg PO BID 5 Days Qty: 10 0RF hydrochlorothiazide 25 mg tablet 25 mg PO DAILY 30 Days Qty: 30 0RF Continued fluticasone propion-salmeterol [Advair Diskus] 250-50 mcg/dose Blister With Device 2 inh INHALATION BID cholecalciferol (vitamin D3) [Vitamin D3] 50 mcg (2,000 unit) Capsule 50 mcg PO QAM albuterol sulfate 90 mcg/actuation Aerosol Powdr Breath Activated 1 inh INHALATION QID PRN (Reason: SHORT OF BREATH) Patient Comments: over a month ago er the patient multivitamin Tablet 1 tab PO DAILY albuterol sulfate 2.5 mg /3 mL (0.083 %) Solution For Nebulization 2.5 mg INHALATION QID PRN (Reason: Shortness Of Breath Or Wheezing) levothyroxine 100 mcg tablet 100 mcg PO DAILY ibuprofen 200 mg Tablet 200 mg PO Q6H PRN (Reason: Pain) Discontinued dicloxacillin 500 mg capsule 500 mg PO QID Rx Instructions: STARTED 05/19/24 FOR 7 DAYS. TAKE 1 HR PRIOR TO OR 2 HR AFTER MEALS. losartan 100 mg tablet 100 mg PO DAILY Rx Instructions: STARTED 05/14/24 Discharge Orders: Discharge Order (Routine); Ordered 05/25/24 Ordered By: Dante Cardozo/Other Patient Handouts: Hydrochlorothiazide Oral Tablet, Linezolid Oral Tablet Admission Data Admit Date/Time: 05/21/24 20:40 Attending Provider: Prateek Washington Admit Provider: Jaspreet Stevenson Primary Care Provider: Jensen Ghosh Other Providers: Jaspreet Stevenson Other Interventions: Discharge Summary Assessment (RN) Last Done: 05/25/24 16:49 Supervising Physician Co-Signing Physician Notes I personally examined the patient and verified all rojas points of history and exam, discussed case, and agree with decision making with Dr Enriquez feeling better overall. Feeling up to going home. No fevers chills or sweats throughout the duration. Notes that his legs dramatically swelled up literally the day after stopping his hydrochlorothiazide. He had stopped that due to feeling very dehydrated, but also notes that it was whenever it was extremely hot. Vitals noted, in general he is awake and alert pleasant no distress. HEENT normocephalic atraumatic mucous membranes moist. Breathing unlabored no accessory muscle use good effort. Bilateral lower extremities with numerous venous stasis changes. Large patch of red somewhat thickened skin in his medial and posterior thigh on the right, a much smaller similar patch on the left. These are mostly minimally tendershe has a few tender spots in the area of what appears to be mild superficial phlebitis. Leg swelling and erythemaI suspect most of this is due to venous stasis. It is hard to rule out concomitant cellulitisespecially given that he has been on antibiotics for about a week now, but at the same time with his lack of fever/leukocytosis/etc. I am far more suspicious that the majority, if not the entirety, of his skin changes were due to venous stasis. Given that it is impossible to rule out cellulitisfinish out a course of antibiotics covering for resistant pathogens. At the same time direct most of the treatment towards venous stasisdiscussed movement, compression, elevation. Discussed that for most patients diuretics tend to affect far more dehydration than improvement in venous stasis, but given that he had been on hydrochlorothiazide for (by his account) 25 years before having a problemand the problem occurred whenever it was very hot outwe agreed that it is quite possible that the dehydration was more weather related/perfect storm of whether plus thiazide not the thiazide aloneand given that he noticed a dramatic worsening of his edema of the day after stopping his Dyazide, it is possible that he is in the small subset of people that truly benefit from a degree of diuresis with her venous stasis. To that end resume his hydrochlorothiazide, follow-up basic metabolic panel 1 week. Stay hydrated orally. ZOE - improved with IV hydration. Safe/stable for home. Switching losartan out to resume hydrochlorothiazide. Basic metabolic panel in a week DVT prophylaxis with heparin subcu Resident Activity Tracking Resident Involvement: Resident Care Provided Care Provided: Adult Hospital Medicine
--- NOTE | 2024-05-25 17:54 | Billing Data ---
Date of Service May 25, 2024 Coding Level of Care Code 47325 IN/OBS DISCH 30 MIN/LESS
== END 2024-05-25 18:58 | disposition home or self-care (01) | DRG 603 ==
LOC: ED 17:27 → 3W 20:40 → SUATTDRO 20:40 → 3W 21:51